=== PATIENT | female | born 1975 | race Two or more races ===

== ENCOUNTER → 2017-04-17 | Outpatient (CLI) | payer OTHER ==
--- NOTE | ~2017-04-17 | MY29 ---
[facility] A Service of [facility] RADIOLOGY TEXT RESULTS PATIENT: RICKEY DONALDSON LOCATION: [facility] : 75 UNIT #: [id number] AGE: [address]: CHEYENNE HEREDIA APRN SEX: F ORDER DR: [id number] [facility] [address] [place], [place] [address] [id number] O MR#: [id number] Acc #: [id number] NAME: RICKEY DONALDSON : 1975 SEX: F STUDY DATE/TIME: 04/17/2017 16:30 UNIT: [facility] ROOM: STUDY DESCRIPTION: MY [facility] SCREENING W/ CAD BILAT Attending Physician: Ramon Heredia M.D. Referring Physician: Ramon Heredia M.D. Ordering Physician: Ramon Heredia M.D. Primary Care Physician: Ramon Heredia M.D. MEDICAL IMAGING REPORT This report is preliminary unless electronic signature is present EXAM Digital screening mammogram, 04/17/2017 HISTORY 41-year-old woman no risk elevation. Prior reduction mammoplasties. Annual screening. COMPARISON 03/29/2016 FINDINGS Digital imaging of each breast was completed utilizing screening protocol. Review includes FDA-approved CAD device. Breast parenchyma is fatty replaced. There are several small lipoid cysts identified bilaterally. There is no interval occurring mass and no suspicious microcalcifications. I see no architectural distortion. IMPRESSION Negative mammogram. Annual screening recommended. Patients over the age of 40 are entered into a reminder system with target due date for the next mammogram. A result letter will also be sent to the patient. BIRADS: 1 Negative Dictated by... Vish King M.D. THIS IS AN ELECTRONICALLY VERIFIED REPORT Vish King M.D. at 04/18/2017 2:24 PM Damian [facility] A Service of [facility] RADIOLOGY TEXT RESULTS PATIENT: RICKEY DONALDSON LOCATION: [facility] : 75 UNIT #: [id number] AGE: [address]: CHEYENNE HEREDIA APRN SEX: F ORDER DR: TD: 04/18/2017 12:58 JOB #: [id number] MEDICAL IMAGING REPORT Page 1 of 1 COPY
== END | disposition home or self-care (01) ==
LOC: CWCC 16:09
DX: Z12.31 Encounter for screening mammogram for malignant neoplasm of breast (principal)
CPT/HCPCS: G0202